=== PATIENT | male | born 1930 | race African-American/Black ===

== ENCOUNTER 2020-03-06 12:35 | Emergency (ER) | payer OTHER ==
[~2020-03-06] VITALS: Ht 177.8 cm; Wt 50.0 kg
[2020-03-06] MEDS ORDERED: DEXTROSE 50% WATER 50ML SYRINGE IV ONE ×3 (12:45→18:30)
[2020-03-06] MEDS ORDERED: SODIUM CHLORIDE 0.9% 1,000 ML IV ONE (12:45)
[2020-03-06 13:49] LABS: CHLORIDE 126 mEq/L (98-107)
[2020-03-06 13:54] LABS: BASOPHILS % 0.2 % (0.0-2.0); EOSINOPHILS % 0.2 % (0.0-5.0); HEMOGLOBIN. 12.7 g/dL (14.0-18.0); LYMPHOCYTES % 16.2 % (20.0-50.0); MEAN CORPUSCULAR HEMOGLOBIN 31.9 pg (28.0-32.0); MEAN CORPUSCULAR VOLUME 95.6 fL (80.0-94.0); MEAN PLATELET VOLUME 9.7 fl (7.4-10.4); MONOCYTES % 3.9 % (2.0-8.0); NEUTROPHILS % 79.5 % (40.0-76.0); PLATELET 171 x1000/uL (130-400); RED BLOOD CELL COUNT 3.98 mill/uL (4.7-6.1); RED CELL DISTRIBUTION WIDTH 15.1 % (11.6-14.6)
[2020-03-06 15:11] LABS: PROTHROMBIN TIME 20.8 sec (9.6-11.0)
[2020-03-06] MEDS ORDERED: SODIUM CHLORIDE 0.9% 10ML VIAL ONE (17:00)
[2020-03-06] MEDS ORDERED: VECURONIUM BROMIDE 10 MG/VIAL IV ONE (17:00)
[2020-03-06 22:00] VITALS: BP 91/59
== END 2020-03-06 22:21 | disposition home or self-care (01) ==
LOC: ER 12:57
DX: J96.01 Acute respiratory failure with hypoxia (principal); F03.90 Unspecified dementia, unspecified severity, without behavioral disturbance, psychotic disturbance, mood disturbance, and anxiety; E86.0 Dehydration; R41.82 Altered mental status, unspecified
CPT/HCPCS: 36415; 70450; 71045; 80053; 82962; 83605; 83880; 84145; 84484; 85025; 85610; 87040; 93005; 96361; 96374; 96375; 96376; 99285; J3490; J7030